=== PATIENT | female | born 1975 | race American Indian/Alaskan Native ===

== ENCOUNTER 2024-06-30 02:58 | Emergency (ER) | payer MEDICAID ==
[~2024-06-30] VITALS: Ht 162.6 cm; Wt 59.0 kg
[2024-06-30] MEDS ORDERED: KETOROLAC TROMETHAMINE 15 MG/ML VIAL ONE (04:09)
[2024-06-30] MEDS ORDERED: METOCLOPRAMIDE HCL 10 MG/2 ML VIAL ONE (04:09)
[2024-06-30] MEDS: METOCLOPRAMIDE HCL 10 MG/2 ML VIAL IV ONE (04:21)
[2024-06-30] MEDS: KETOROLAC TROMETHAMINE 15 MG/ML VIAL IV ONE (04:23)
[2024-06-30] MEDS: IV NS 0.9% 1,000 ML BAG IV ONE (04:37)
[2024-06-30] MEDS ORDERED: KETO10TA2 PO (04:57)
[2024-06-30 06:22] VITALS: BP 95/60; TEMP 98; O2SAT 96
== END 2024-06-30 06:24 | disposition home or self-care (01) ==
LOC: ER 03:22
DX: G44.209 Tension-type headache, unspecified, not intractable (principal); M54.2 Cervicalgia; R11.0 Nausea; R40.0 Somnolence; Z88.2 Allergy status to sulfonamides; Z86.69 Personal history of other diseases of the nervous system and sense organs; Z60.2 Problems related to living alone; V49.69XA Unspecified car occupant injured in collision with other motor vehicles in traffic accident, initial encounter; Y93.89 Activity, other specified; Y92.488 Other paved roadways as the place of occurrence of the external cause; Y99.8 Other external cause status
CPT/HCPCS: 99285; 72125; 96374; 96361; 96375; 70450; J2765; J7030; A4223; J1885